=== PATIENT | female | born 1935 | race Caucasian/White ===

== ENCOUNTER → 2017-10-21 | Day surgery (SDC) | payer OTHER ==
[~2017-10-21] MED LIST: ACETYLCYSTEINE 20% 6,000 MG/30 ML ORAL SOLN VIAL ONE; LACTATED RINGER'S 1000 ML INJ 1,000 ML ONE; PROPOFOL 500 MG/50 ML BTL IV ONE; SODIUM CHLORIDE 0.9% 20 ML VIAL ONE; STERILE WATER FOR INJECTION 20 ML VIAL ONE
== END | disposition home or self-care (01) ==
LOC: ESDC 10:43
PROVIDERS: ATTEND Internal Medicine Gastroenterology
DX: K22.711 Barrett's esophagus with high grade dysplasia (principal)
CPT/HCPCS: 00731; 43270; J3010; J7120

== ENCOUNTER → 2018-01-23 | Outpatient (CLI) | payer OTHER ==
[~2018-01-23] VITALS: Ht 160 cm; Wt 61.6 kg
[~2018-01-23] MED LIST changes: -ACETYLCYSTEINE 20% 6,000 MG/30 ML ORAL SOLN VIAL ONE; +ATOR10TA15 PO; +CARA1TAB6 PO; +CHLORHEXIDINE GLUCONATE 2 % 1 PACK (2 CLOTHS) TOPICAL PRN; +GLYCOPYRROLATE 1 MG/5 ML SYRINGE IV PUSH ONE; +INSULIN HUMAN REGULAR 1,000 UNITS/10 ML VIAL SQ PRN; -LACTATED RINGER'S 1000 ML INJ 1,000 ML ONE; +LACTATED RINGER'S 1000 ML IV PRN; +LEVO50TA4 PO; +LIDOCAINE HCL 1% PF 5 ML SYRINGE OTHER ONE; +METOPROLOL TARTRATE 25 MG TAB PO PRN; +PANT40TA3 PO; +POLY17S PO; +POVIDONE IODINE 5% (ANTISEPSIS KIT) 4 APPLICATIONS EACH NARE PRN; +PROPOFOL 200 MG/20 ML AMP IV ONE; -PROPOFOL 500 MG/50 ML BTL IV ONE; +SODIUM CHLORID 0.9% 500 ML IV PRN; -SODIUM CHLORIDE 0.9% 20 ML VIAL ONE; -STERILE WATER FOR INJECTION 20 ML VIAL ONE; +TRAM50TA PO
--- NOTE | 2018-01-23 09:28 | PD.PROCEDR ---
GI Procedure PROCEDURE PERFORMED EGD with biopsy followed by an endoscopic ultrasound INDICATION FOR PROCEDURE Irving's esophagus PROCEDURE: The procedure, risks and benefits were discussed with Patient/POA and informed consent was obtained. Anesthesia sedated Patient with Diprivan. Patient was placed in the left lateral decubitus position. EGD: The Pentax videoscope was introduced through the oropharynx and advanced to the second portion of the duodenum under direct visualization. Retroflexion was performed in the stomach. FINDINGS: The esophagus the Z line appeared to be somewhat irregular this was biopsied no signs of scarring or stricturing The stomach there was a small hiatal hernia otherwise the gastric mucosa was unremarkable The duodenum this was unremarkable and within normal limits EUS: The Pentax videoscope was introduced through the oropharynx and advanced to the stomach. FINDINGS: The esophageal wall appeared to be intact under endosonographic evaluation no irregularities and was noted to be homogeneous with a 5 layer structure There was a small lymph node measuring 4 mm noted at level 30 cm from the incisors The pancreas appeared to be unremarkable and within normal limits ESTIMATED BLOOD LOSS: None SPECIMENS REMOVED: Esophageal biopsies COMPLICATIONS: None IMPRESSION: Irregular Z line Hiatal hernia PLAN: Await biopsies Follow-up in clinic in 3-4 weeks Continue present management Dmitry Padgett MD January 23, 2018 09:28
[2018-01-23 10:10] VITALS: BP 116/61; PULSE 54; RESP 18; TEMP 97.3; O2SAT 98
--- NOTE | 2018-01-24 08:31 | EKG ---
Date Performed: 01/23/2018 Time Performed: 07:21:07 PTAGE: 82 years EKG: Sinus rhythm MARKED LEFT AXIS DEVIATION LEFT VENTRICULAR HYPERTROPHY AND ST-T CHANGE Late R wave transition ABNOR MAL ECG PREVIOUS TRACING : 11/08/1998 11.02 DOCTOR: Shemar Ji Interpretating Date/Time 01/24/2018 08:30:30
== END ==
LOC: HSDC 07:00
PROVIDERS: ATTEND Internal Medicine Gastroenterology
DX: K21.9 Gastro-esophageal reflux disease without esophagitis (principal); K29.50 Unspecified chronic gastritis without bleeding; K44.9 Diaphragmatic hernia without obstruction or gangrene; R94.31 Abnormal electrocardiogram [ECG] [EKG]
CPT/HCPCS: 00731; 43242; 88305; 93005; J7120